=== PATIENT | male | born 1965 ===

== ENCOUNTER 2017-02-01 06:34 | Day surgery (SDC) | payer OTHER ==
[2017-01-30 15:22] VITALS: BMI 31.4
[2017-02-01 07:07] LABS: ADD MANUAL DIFF? NO
[2017-02-01 07:16] LABS: BASO # 0.03 K/mm3 (0.0-2.0); BASO % 0.5 % (0.0-3.0); EOS # 0.3 (0.0-0.7); EOS % 4.3 % (1.5-5.0); GRAN # 2.64 (1.4-6.5); GRAN % 43.6 % (50.0-68.0); HEMATOCRIT 42.4 % (42.0-52.0); LYMPH # 2.8 (1.2-3.4); MEAN CELL VOLUME 86.9 fL (80.0-105.0); MEAN CORPUSCULAR HEMOGLOBIN 29.7 pg (25.0-35.0); MEAN CORPUSCULAR HGB CONC 34.2 g/dl (31.0-37.0); MEAN PLATELET VOLUME 9.5 fl (7.0-11.0); MONO # 0.3 (0.1-0.6); MONO % 5.6 % (1.0-6.0); PLATELET COUNT 316 10^3/uL (120.0-450.0); RED CELL DISTRIBUTION WIDTH 12.7 % (11.5-14.5); WHITE BLOOD COUNT 6.1 10^3/ul (4.5-11.0)
[2017-02-01 07:33] LABS: PARTIAL THROMBOPLASTIN TIME 28.2 Seconds (23.7-30.8)
[2017-02-01 07:38] LABS: BLOOD UREA NITROGEN 14 mg/dL (7-21); CALCIUM 9.2 mg/dL (8.4-10.5); CARBON DIOXIDE 25 mmol/L (21-33); CHLORIDE 103 mmol/L (95-110); GFR AFRICAN-AMERICAN > 60; GLUCOSE,RANDOM 110 mg/dL (70-110); SODIUM 139 mmol/L (132-148)
--- NOTE | 2017-02-01 08:23 | CP.SDSHP ---
Same Day Surgery H & P - History Proposed Procedure: ct guided Bx of pancreas. Pre-Op Diagnosis: pancreatic mass. - Previous Medical/Surgical History Pulmonary: Asthma Pain: 0. No Pain - Allergies Allergies: Allergies No Known Allergies Allergy (Verified 01/16/17 22:18) - Physical Exam General Appearance: WNL. Mental Status: Alert & Oriented x3 Neuro: WNL Heart: WNL Lungs: WNL GI: WNL - Impression Impression: PANCREATIC MASS. - Date & Time Date: 02/01/17 Time: 08:23 Short Stay Discharge - Short Stay Discharge Admitting Diagnosis/Reason for Visit: PANCREATIC MASS C25.2 Disposition: HOME/ ROUTINE
[2017-02-01] MEDS ORDERED: Midazolam 2 MG/2 ML VIAL ONE (08:34)
[2017-02-01] MEDS ORDERED: Oxycodone/Acetaminophen 5/325 mg Tab PO PRN (09:01)
[2017-02-01] MEDS ORDERED: Sodium Chloride 0.45% 1,000 ML IV SCH (09:15)
--- NOTE | 2017-02-01 12:28 | RAD ---
HISTORY: r/o left PTX p bx COMPARISON: No prior. FINDINGS: LUNGS: No active pulmonary disease. PLEURA: No significant pleural effusion identified, no pneumothorax apparent. CARDIOVASCULAR: Normal. OSSEOUS STRUCTURES: No significant abnormalities. VISUALIZED UPPER ABDOMEN: Normal. OTHER FINDINGS: None. IMPRESSION: No active disease.
--- NOTE | 2017-02-01 14:00 | CT ---
PROCEDURE: CT guided pancreatic biopsy. HISTORY: 7 cm mass in the tail the pancreas. Evaluate for pancreatic CA. PHYSICIAN(S): Chris López MD. TECHNIQUE: The relative risks and indications of the procedure were explained to the patient and consent obtained. The patient was placed prone on the CT scanner and preliminary images through the upper abdomen obtained. Conscious sedation and monitoring were provided throughout the procedure by a nurse. There is a 7 cm lobulated mass in the tail of the pancreas.. A left posterior approach was selected and the area prepped and draped in the usual sterile fashion. 1% Xylocaine was used to anesthetize the skin and soft tissues. A 17-gauge guiding needle was advanced into the 7 cm pancreatic mass. Its position was confirmed with CT. Using coaxial technique, multiple core biopsies were obtained. The postprocedure images show no evidence of significant hemorrhage. IMPRESSION: 1. CT-guided pancreatic biopsy as described above.
[2017-02-01 16:13] VITALS: RESP 20
[2017-02-01 16:15] VITALS: BP 128/79; PULSE 82; TEMP 98.4; O2SAT 98
== END 2017-02-01 13:00 | disposition home or self-care (01) ==
LOC: SDS 06:34
PROVIDERS: ATTEND Radiology Vascular & Interventional Radiology
DX: C7A.8 Other malignant neuroendocrine tumors (principal); J45.909 Unspecified asthma, uncomplicated
CPT/HCPCS: 36415; 48102; 71010; 77012; 80048; 85025; 85610; 85730; 88307; J2250; J2405; J3010; J7030

== ENCOUNTER 2018-01-23 11:52 | Day surgery (SDC) | payer OTHER ==
[2018-01-23 12:09] VITALS: BMI 28.5
--- NOTE | 2018-01-23 12:58 | ED PDOC ---
Arrival/HPI - General Chief Complaint: Abdominal Pain Time Seen by Provider: 01/23/18 12:21 Historian: Patient - History of Present Illness Narrative History of Present Illness (Text): 01/23/18 12:58 A 52 year old male, whose past medical history includes metastatic pancreatic cancer starting chemotherapy on Monday, presents to the emergency department for port placement. Patient reports prior abdominal pain that has now resolved. Denies any acute complaints. Patients last normal bowel movement was this morning. Patient denies any fever, chills, nausea, vomiting, diarrhea, chest pain, shortness of breath or any other complaints. Oncologist: Dr. 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 - Anesthesia Hx Anesthesia Reactions: No Hx Malignant Hyperthermia: No - Suicidal Assessment Feels Threatened In Home Enviroment: No Family/Social History - Physician Review Nursing Documentation Reviewed: Yes Family/Social History: No Known Family HX Smoking Status: Never Smoked Hx Alcohol Use: No Hx Substance Use: No Allergies/Home Meds Allergies/Adverse Reactions: Allergies No Known Allergies Allergy (Verified 01/16/17 22:18) Home Medications: Home Meds Medication Instructions Recorded Confirmed Albuterol 0.083% [Albuterol 3 ml IH PRN PRN 01/18/18 Sulfate 3 Ml] Review of Systems - Physician Review All systems were reviewed & negative as marked: Yes - Review of Systems Constitutional: absent: Fevers, Night Sweats Respiratory: absent: SOB, Cough, Sputum, Wheezing Cardiovascular: absent: Chest Pain Gastrointestinal: Abdominal Pain. absent: Constipation, Diarrhea, Nausea, Vomiting Genitourinary Male: absent: Dysuria, Frequency Physical Exam Vital Signs Reviewed: Yes Vital Signs Temp Pulse Resp BP Pulse Ox 01/23/18 14:16 80 18 140/73 99 01/23/18 11:53 99.3 F 84 18 138/98 H 96 Temperature: Afebrile Blood Pressure: Hypertensive Pulse: Regular Respiratory Rate: Normal Appearance: Positive for: Well-Appearing, Non-Toxic, Comfortable Pain Distress: None Mental Status: Positive for: Alert and Oriented X 3 - Systems Exam Head: Present: Atraumatic, Normocephalic Pupils: Present: PERRL Extroacular Muscles: Present: EOMI Conjunctiva: Present: Normal Mouth: Present: Moist Mucous Membranes Neck: Present: Normal Range of Motion. No: Meningeal Signs Respiratory/Chest: Present: Clear to Auscultation, Good Air Exchange. No: Respiratory Distress, Accessory Muscle Use Cardiovascular: Present: Regular Rate and Rhythm, Normal S1, S2. No: Murmurs Abdomen: Present: Normal Bowel Sounds. No: Tenderness (No tenderness on evaluation), Distention, Peritoneal Signs Upper Extremity: Present: Normal Inspection. No: Cyanosis, Edema Lower Extremity: Present: Normal Inspection. No: Edema Neurological: Present: GCS=15, CN II-XII Intact, Speech Normal Skin: Present: Warm, Dry, Normal Color. No: Rashes Psychiatric: Present: Alert, Oriented x 3, Normal Insight, Normal Concentration Medical Decision Making ED Course and Treatment: 01/23/18 12:58 Impression: A 52 year old male presenting for port placement. No acute complaints. Plan: -- Port placement --Pre op Labs -- IV fluids -- Reassess and disposition Progress Notes: Dr. De pfeiffer, awaiting call back. 01/23/18 13:[address] Kc, states patient was sent for a port placement. Dr. Chris López pageheidi. On re-evaluation, patient continues to deny abdominal pain and reports he was instructed to come to the emergency room for port placement. He denies any acute issues at this time. 01/23/18 13:[address] Chris López, aware of patient in emergency room. States he will take patient for port placement after labs. 01/23/18 15:09 Patient taken to [facility] - Lab Interpretations Lab Results: 01/23/18 13:20 01/23/18 13:20 Lab Results 01/23/18 13:20: Sodium 141, Potassium 4.7, Chloride 105, Carbon Dioxide 26, Anion Gap 15, BUN 11, Creatinine 0.8, Est GFR ( Amer) > 60, Est GFR (Non- Af Amer) > 60, Random Glucose 101, Calcium 9.7, Total Bilirubin 0.2, AST 32, ALT 33, Alkaline Phosphatase 95, Total Protein 7.6, Albumin 4.2, Globulin 3.3, Albumin/Globulin Ratio 1.3 01/23/18 13:20: PT 11.3, INR 0.98, APTT 31.6 01/23/18 13:20: WBC 8.1 D, RBC 4.86, Hgb 14.9, Hct 42.9, MCV 88.3, MCH 30.7, MCHC 34.7, RDW 14.3, Plt Count 345, MPV 10.2, Gran % 52.0, Lymph % (Auto) 34.8, [place] % (Auto) 7.6 H, Eos % (Auto) 4.9, Baso % (Auto) 0.7, Gran # 4.22, Lymph # ( Auto) 2.8, [place] # (Auto) 0.6, Eos # (Auto) 0.4, Baso # (Auto) 0.06 I have reviewed the lab results: Yes - RAD Interpretation Radiology Orders: 01/23/18 14:51 CAR PERIPHERAL VASCULAR ORDER [VASCULAR] Stat - Scribe Statement The provider has reviewed the documentation as recorded by the [employer] [facility] Provider Scribe Attestation: All medical record entries made by the Scribe were at my direction and personally dictated by me. I have reviewed the chart and agree that the record accurately reflects my personal performance of the history, physical exam, medical decision making, and the department course for this patient. I have also personally directed, reviewed, and agree with the discharge instructions and disposition. Disposition/Present on Arrival - Present on Arrival Any Indicators Present on Arrival: No History of DVT/PE: No History of Uncontrolled Diabetes: No Urinary Catheter: No History of Decub. Ulcer: No History Surgical Site Infection Following: None - Disposition Have Diagnosis and Disposition been Completed?: Yes Diagnosis: Metastatic cancer, Encounter for insertion of venous access port Disposition Time: 15:09 Condition: GOOD Referrals: Alexei Summers, DESIGN TRANSFERRER [Primary Care Provider] - Follow up with primary Forms: [employer] [place] (Ch[place]an)
[2018-01-23] MEDS ORDERED: Sodium Chloride 0.9% 500 ML IV STA (13:00)
[2018-01-23] MEDS ORDERED: Iohexol 240 (50 ml) ONE (13:04)
[2018-01-23 13:42] LABS: BASO # 0.06 K/mm3 (0.0-2.0); BASO % 0.7 % (0.0-3.0); EOS # 0.4 (0.0-0.7); EOS % 4.9 % (1.5-5.0); GRAN # 4.22 (1.4-6.5); HEMOGLOBIN 14.9 g/dL (14.0-18.0); LYMPH # 2.8 (1.2-3.4); LYMPH % 34.8 % (22.0-35.0); MEAN CELL VOLUME 88.3 fl (80.0-105.0); MEAN CORPUSCULAR HEMOGLOBIN 30.7 pg (25.0-35.0); MEAN CORPUSCULAR HGB CONC 34.7 g/dl (31.0-37.0); MEAN PLATELET VOLUME 10.2 fl (7.0-11.0); MONO # 0.6 (0.1-0.6); MONO % 7.6 % (1.0-6.0); RBC 4.86 10^6/uL (3.5-6.1); RED CELL DISTRIBUTION WIDTH 14.3 % (11.5-14.5); WHITE BLOOD COUNT 8.1 10^3/ul (4.5-11.0)
[2018-01-23 13:53] LABS: ALB/GLOB RATIO 1.3 (1.1-1.8); ALBUMIN 4.2 g/dL (3.0-4.8); ALT/SGPT 33 U/L (7-56); AST/SGOT 32 U/L (17-59); BLOOD UREA NITROGEN 11 mg/dL (7-21); CALCIUM 9.7 mg/dL (8.4-10.5); GFR AFRICAN-AMERICAN > 60; GFR NON-AFRICAN AMERICAN > 60
[2018-01-23 13:55] LABS: INR 0.98 (0.93-1.08); PARTIAL THROMBOPLASTIN TIME 31.6 Seconds (25.1-36.5); PROTHROMBIN TIME 11.3 SECONDS (9.4-12.5)
[2018-01-23] MEDS ORDERED: Lidocaine 2% Inj (20ml) ONE (15:01)
[2018-01-23] MEDS ORDERED: Midazolam 2 MG/2 ML VIAL ONE ×3 (15:01→16:29)
[2018-01-23] MEDS ORDERED: Oxycodone/Acetaminophen 5/325 mg Tab PO PRN (16:53)
[2018-01-23] MEDS ORDERED: Sodium Chloride 0.45% 1,000 ML IV SCH (17:00)
[2018-01-23 17:54] VITALS: RESP 18; TEMP 97.9; O2SAT 95
[2018-01-23 18:07] VITALS: BP 113/82; PULSE 72
--- NOTE | 2018-01-23 19:34 | VASCULAR ---
PROCEDURE: Ultrasound and fluoroscopic right internal jugular venous access port. CLINICAL HISTORY: Metastatic neuroendocrine carcinoma.Venous port for chemotherapy. PHYSICIAN(S): Chris López M.D. TECHNIQUE: The relative risks and indications of the procedure were explained to the patient and consent obtained. The patient was placed supine on the arteriogram table and the right neck and chest prepped and draped in the usual sterile fashion. Conscious sedation monitoring was provided throughout the procedure by a nurse. Antibiotics were given prior to the procedure. Under direct ultrasound guidance, the right internal jugular vein was punctured with a micro-puncture set. A 0.035 angled Glidewire was advanced into the IVC. A 4 cm incision was made below the right clavicle and the pocket blunted dissected. A 8 Maori single-lumen catheter, 25 cm long, was advanced to the SVC/RA junction. The catheter was trimmed and attached to the port. The port aspirates and injects easily. The port was placed in the pocket and closed in 2 layers. The patient tolerated the procedure well. IMPRESSION: Ultrasound and fluoroscopically placed right internal jugular venous access port.
== END 2018-01-23 18:40 | disposition home or self-care (01) ==
LOC: ED 11:52 → CATH 15:13
PROVIDERS: ATTEND Radiology Vascular & Interventional Radiology
DX: Z45.2 Encounter for adjustment and management of vascular access device (principal); C25.9 Malignant neoplasm of pancreas, unspecified; C7A.8 Other malignant neuroendocrine tumors; J45.909 Unspecified asthma, uncomplicated
CPT/HCPCS: 36561; 76937; 77001; 80053; 85025; 85610; 85730; 99152; 99153; C1769; C1788; J0690; J1644; J2250; J2405; J3010; J7030 ×2; Q9966